=== PATIENT | male | born 1945 | race Caucasian/White ===

== ENCOUNTER → 2024-04-11 | Outpatient (CLI) | payer MEDICARE, BC ==
--- NOTE | 2024-04-11 10:43 | XR ---
EXAMINATION TYPE: XR lumbosacral spine min 4V DATE OF EXAM: 04/11/2024 10:34 AM COMPARISON: None. 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 FINDINGS: There are 5 lumbar type vertebral bodies identified. The lumbar spine shows grade 1 anter olisthesis L4 on L5. Vertebral body heights and disk space heights are within normal limits. Mild mul tilevel spurring is seen. The oblique images appear within normal limits. There is facet arthropath y in the lower lumbar spine. Icrs-ht-momgobrb overlying arterial vascular calcification is present. IMPRESSION: As above. [facility], , 04/11/2024 10:40 AM
== END | disposition home or self-care (01) ==
LOC: RADXRMAIN 10:17
PROVIDERS: ATTEND Family Medicine
DX: M51.369 Other intervertebral disc degeneration, lumbar region without mention of lumbar back pain or lower extremity pain (principal); M47.896 Other spondylosis, lumbar region
CPT/HCPCS: 72110